=== PATIENT | female | born 1965 | race Caucasian/White ===

== ENCOUNTER 2020-07-18 15:08 | Outpatient (CLI) | payer BC, SELFPAY ==
--- NOTE | ~2020-07-18 | US_ITS ---
EXAMINATION: US pelvic complete w TV DATE: 07/18/2020 15:43 INDICATION: Enlarged uterus Comparison:No prior studies for comparison. TECHNIQUE: Multiple transabdominal and endovaginal sonographic images of the pelvis performed. FINDINGS: The uterus measures 8.4 x 2 x 4.6 cm. There is a uterine fibroid at the fundus measuring 1. 6 cm. The endometrial complex measures 3 mm. The right ovary is not visualized. Left ovary is unremarkable measuring 2 x 1.3 x 0.9 cm. There is no free fluid in the pelvis. There are no abnormal masses seen on either side. IMPRESSION: 1. Small uterine fibroid at the fundus measuring 1.6 cm maximum dimension. Reviewed, dictated and finalized at location B.
== END 2020-07-18 15:09 ==
PROVIDERS: PCP Internal Medicine; Visit Provider Obstetrics & Gynecology
DX: N85.2 Hypertrophy of uterus (principal); D25.9 Leiomyoma of uterus, unspecified
CPT/HCPCS: 76830; 76856

== ENCOUNTER → 2020-08-18 10:53 | Outpatient (CLI) | payer BC, SELFPAY ==
--- NOTE | ~2020-08-18 | MM_ITS ---
EXAMINATION: MM screening [facility] BI w jese HISTORY: Screening mammogram TECHNIQUE: Craniocaudal and mediolateral oblique 3-D tomosynthesis images were obtained and synthetic 2-D images were generated. CAD analysis was submitted and interpreted. COMPARISON: 04/14/2018, 05/05/2013 bilateral digital screening mammogram examinations BREAST PARENCHYMAL COMPOSITION: There are scattered areas of fibroglandular density. FINDINGS: There are bilateral mammographic asymmetries including 2 possible mid and upper outer left breast masses. Bilateral diagnostic mammography and bilateral breast ultrasound examination are recom mended. IMPRESSION: 1. Bilateral mammographic asymmetries, possible breast masses 2. Bilateral diagnostic mammography and breast ultrasound examination are recommended BI-RADS Category 0: Incomplete: Needs additional imaging evaluation. Reviewed, dictated and finalized at location A. IMPRESSION: 1. Bilateral mammographic asymmetries, possible breast masses 2. Bilateral diagnostic mammography and breast ultrasound examination are recom mended BI-RADS Category 0: Incomplete: Needs additional imaging evaluation.
== END ==
PROVIDERS: Visit Provider Obstetrics & Gynecology
DX: Z12.31 Encounter for screening mammogram for malignant neoplasm of breast (principal); R92.8 Other abnormal and inconclusive findings on diagnostic imaging of breast
CPT/HCPCS: 77063; 77067

== ENCOUNTER → 2020-10-19 09:24 | Outpatient (CLI) | payer BC, SELFPAY ==
--- NOTE | ~2020-10-19 | MMUS_ITS ---
EXAMINATION: MM diagnostic [facility] BI w jese, US breast LT limited HISTORY: Bilateral mammographic asymmetries reported on 08/18/2020 screening mammogram TECHNIQUE: Additional 3-D tomosynthesis images of both breasts were performed and synthetic 2-D image s were generated. CAD analysis was submitted and interpreted. High resolution upper outer and lower-o uter left breast ultrasound was performed. COMPARISON: 08/10/2020, 04/12/2018, bilateral digital screening mammogram examinations FINDINGS: MAMMOGRAPHIC FINDINGS: Approximately 7 x 10 mm circumscribed mildly lobular mass is noted in the outer mid left breast. Approximately 7 mm irregular asymmetric opacity is noted in the upper outer left breast. Ultrasound of the left upper outer and lower-outer quadrants was performed for further evaluation of these areas. No suspicious mass or architectural distortion, malignant aspiration, skin thickening or retraction o f either breast is noted otherwise. ULTRASOUND: Left breast 2:00 3 cm from nipple: 4.5 x 3.9 x 4.3 mm hypoechoic lesion is noted, without internal va scularity or suspicious shadowing; six-month targeted left breast ultrasound follow-up is recommended .. 3:00 3 cm from nipple: 6 x 7.7 mm sonolucency with through transmission posterior enhancement consist ent with simple cyst. IMPRESSION: Probable benign left breast 2:00 lesion; recommend 6 month targeted left breast ultrasound follow-up BI-RADS category 3, probably benign findings. Reviewed, dictated and finalized at location A. IMPRESSION: Probable benign left breast 2:00 lesion; recommend 6 month targeted left breast ultrasound follow-up BI-RADS category 3, probably benign findings.
== END ==
PROVIDERS: PCP Internal Medicine; Visit Provider Obstetrics & Gynecology
DX: R92.8 Other abnormal and inconclusive findings on diagnostic imaging of breast (principal)
CPT/HCPCS: 76642; 77062; 77066; G0279

== ENCOUNTER → 2020-10-19 09:26 | Outpatient (CLI) | payer BC, SELFPAY ==
--- NOTE | ~2020-10-19 | DEXA_ITS ---
Bone Density Report Name: Estefania Taylor Age: 55 Sex: Female Ethnicity: White Date of : 1965 Indication: postmenopausal; screening for osteoporosis; asthma or emphysema; Referring Provider: MALAIKA, CLAU Cordova Study: Bone densitometry was performed. Exam Date: October 19, 2020 Accession number: [id number] Bone Density: Region BMD T-score Z-score Classification AP Spine (L1-L4) 1.139 0.8 2.0 Normal Femoral Neck (Left) 0.919 0.6 1.7 Normal Total Hip (Left) 1.023 0.7 1.4 Normal Femoral Neck (Right) 0.817 -0.3 0.8 Normal Total Hip (Right) 0.971 0.2 1.0 Normal Total Hip Mean 0.997 0.5 1.2 Normal World Health Organization criteria for BMD impression classify patients as: Normal (T-score at or above -1.0), Osteopenia (T-score between -1.0 and -2.5), or Osteoporosis (T-score at or below -2.5). 10-year Fracture Risk: FRAX not reported because: All T-scores for Spine Total, Hip Total, Femoral Neck at or above -1.0 Clinical Information Provided by Patient: Has used the following medications: Vitamin D Has the following medical conditions: Asthma or Emphysema Patient maximum height was 62 Menopause Age: 36 No regular weight bearing exercise Does not regularly consume dairy products Drinks caffeinated beverages Onset of menses at age 9 Number of children 2 Impression: The patient has normal bone mass. Discussion: BONE DENSITY IS ABOVE THE MINIMUM DESIRABLE LEVEL AT ALL SKELETAL SITES TESTED. This patient?s bone mineral density is above the minimum desirable level (T-score -1.0 or better) at all sites measured. The patient should follow a healthful lifestyle (good nutrition with adequate calcium and vitamin D, and appropriate weight-bearing exercise). Follow-Up: Consider repeating this study in 5 years or sooner if there is some new clinical indication. Reported by: TERE on 10/19/2020 11:03:00 AM. Reviewed, dictated and finalized at location ABrett CORONADO
== END ==
PROVIDERS: PCP Internal Medicine; Visit Provider Internal Medicine
DX: Z78.0 Asymptomatic menopausal state (principal)
CPT/HCPCS: 77080

== ENCOUNTER 2021-04-24 21:03 | Emergency (ER) | payer BC, SELFPAY ==
[2021-04-24 21:13] VITALS: BP 95/54; PULSE 85; RESP 20; TEMP 36.9; O2SAT 95
--- NOTE | 2021-04-24 22:33 | PC.NURSE ---
Pt to desk for the second time reporting that she is going to leave. Pt encouraged to stay but to return if her symptoms do not improve. Pt A&Ox4 and ambulatory.
== END 2021-04-24 23:11 | disposition left against medical advice (07) ==
LOC: ANHED 22:43
PROVIDERS: PCP Internal Medicine
DX: R10.9 Unspecified abdominal pain (principal)
CPT/HCPCS: 99199

== ENCOUNTER 2023-01-08 13:28 | Outpatient (CLI) | payer BC, SELFPAY ==
--- NOTE | 2023-01-08 | ECHO_ITS ---
Patient Info Name: Estefania Taylor Age: 57 years : 1965 Gender: Female Ht: 61 in Wt: 195 lbs BSA: 2.00 m2 HR: 75 bpm BP: 120 / 79 mmHg Technical Quality: Fair Exam Date: 01/08/2023 2:07 PM Exam Location: [facility] Patient Status: Outpatient Admit Date: 01/08/2023 Staff Ordering Physician: Joycelyn, Trenton Cordova MD Business Broker: Natasha Marie RDCS Attending Provider: Jean, Trenton Cordova MD Referring Physician: Joycelyn GRIFFITHS; Exam Type: CA echo doppler color flow Study Info Indications - artificial heart valve Complete two-dimensional, color flow and Doppler transthoracic echocardiogram is performed. Summary 1. Complete two-dimensional, color flow and Doppler transthoracic echocardiogram is performed. 2. Left ventricular chamber dimension is normal. 3. Left ventricular systolic function is normal, estimated at 60-65%. 4. The left ventricular diastolic function is grade I diastolic dysfunction. 5. E/e' 6 is not elevated. 6. Left atrial chamber dimension is mildly enlarged. 7. There is trace mitral valve regurgitation. 8. There is trace tricuspid valve regurgitation. 9. No pulmonary hypertension, estimated pulmonary arterial systolic pressure is 32 mmHg. 10. There is trace pulmonic regurgitation. Left Ventricle E/e' 6 is not elevated. Left ventricular chamber dimension is normal. Left ventricular systolic function is normal, estimated at 60-65%. The left ventricular diastolic function is grade I diastolic dysfunction. Right Ventricle Right ventricular chamber dimension is normal. Right ventricular systolic function is normal. Left Atria Left atrial chamber dimension is mildly enlarged. Right Atria Right atrial chamber dimension is normal. Aortic Valve The aortic valve is trileaflet. There is no aortic valve stenosis. There is no aortic valve regurgitation. Pulmonic Valve There is trace pulmonic regurgitation. Mitral Valve There is no mitral valve stenosis. There is trace mitral valve regurgitation. Tricuspid Valve There is trace tricuspid valve regurgitation. No pulmonary hypertension, estimated pulmonary arterial systolic pressure is 32 mmHg. Pericardium/Pleural There is no pericardial effusion. Inferior Vena Cava Normal inferior vena cava with >50% collapse upon inspiration consistent with normal right atrial pressure, 5 mmHg. Aorta The aortic root size at the sinus of Valsalva is normal. Left Ventricular Outflow Tract Name Value Normal LVOT 2D LVOT Diameter 2.0 cm LVOT Doppler LVOT Peak Gradient 4 mmHg LVOT Mean Gradient 3 mmHg LVOT VTI 21 cm LVOT VTI/AV VTI Ratio 0.9 LVOT Stroke Volume 63 ml LVOT CO 14.4 l/min LVOT CI 7.2 l/min/m2 Pulmonic Valve Name Value Normal PV Doppler PV Peak
== END 2023-01-08 13:29 | disposition home or self-care (01) ==
PROVIDERS: PCP Internal Medicine; Visit Provider Internal Medicine
DX: Z95.2 Presence of prosthetic heart valve (principal); I51.7 Cardiomegaly
CPT/HCPCS: 77063; 77067; 77080; 93306

== ENCOUNTER 2023-01-08 14:51 | Outpatient (CLI) | payer BC, SELFPAY ==
--- NOTE | ~2023-01-08 | MM_ITS ---
EXAMINATION: MM screening [facility] BI w jese HISTORY: Screening mammogram TECHNIQUE: Craniocaudal and mediolateral oblique 3-D tomosynthesis images were obtained and synthetic 2-D images were generated. CAD analysis was submitted and interpreted. COMPARISON: 10/19/2020, 08/18/2020, 04/15/2018 BREAST PARENCHYMAL COMPOSITION:There are scattered areas of fibroglandular density. FINDINGS: No suspicious mass, calcification, or architectural distortion are identified in either heidi ast to suggest malignancy. There has been no suspicious interval change. IMPRESSION: No mammographic evidence of malignancy. Recommend routine screening mammography in one year. BI-RADS Category 1: Negative Reviewed, dictated and finalized at location .
--- NOTE | ~2023-01-08 | DEXA_ITS ---
Bone Density Report Name: EDWIN CRUZ Age: 57 Sex: Female Ethnicity: White Date of : 1965 Indication: postmenopausal; screening for osteoporosis; height loss; asthma or emphysema; Referring Provider: MALAIKA, CLAU Cordova Study: Bone densitometry was performed. Exam Date: January 08, 2023 Accession number: [id number] Bone Density: Region BMD T-score Z-score Classification AP Spine(L1-L4) 1.079 0.3 1.6 Normal Femoral Neck (Left) 0.888 0.3 1.6 Normal Total Hip (Left) 0.966 0.2 1.1 Normal Femoral Neck (Right) 0.827 -0.2 1.0 Normal Total Hip (Right) 0.921 -0.2 0.7 Normal Total Hip Mean 0.944 0.0 0.9 Normal World Health Organization criteria for BMD impression classify patients as: Normal (T-score at or above -1.0), Osteopenia (T-score between -1.0 and -2.5), or Osteoporosis (T-score at or below -2.5). 10-year Fracture Risk: FRAX not reported because: All T-scores for Spine Total, Hip Total, Femoral Neck at or above -1.0 Clinical Information Provided by Patient: Has used the following medications: Vitamin D Has the following medical conditions: Asthma or Emphysema Patient maximum height was 62 Menopause Age: 39 No regular weight bearing exercise Does not regularly consume dairy products Drinks caffeinated beverages Onset of menses at age 9 Number of children 2 Impression: The patient has normal bone mass. Discussion: BONE DENSITY IS ABOVE THE MINIMUM DESIRABLE LEVEL AT ALL SKELETAL SITES TESTED. This patient?s bone mineral density is above the minimum desirable level (T-score -1.0 or better) at all sites measured. The patient should follow a healthful lifestyle (good nutrition with adequate calcium and vitamin D, and appropriate weight-bearing exercise). Follow-Up: Consider repeating this study in 5 years or sooner if there is some new clinical indication. Reported by: MUKUND on 01/08/2023 3:33:00 PM. Reviewed, dictated and finalized at location Amparo CORONADO
== END 2023-01-08 14:52 | disposition home or self-care (01) ==
LOC: ANHIMG 14:55
PROVIDERS: PCP Internal Medicine; Visit Provider Internal Medicine
DX: Z12.31 Encounter for screening mammogram for malignant neoplasm of breast (principal); Z78.0 Asymptomatic menopausal state
CPT/HCPCS: 77063; 77067; 77080

== ENCOUNTER 2024-05-25 15:11 | Outpatient (CLI) | payer OTHER, SELFPAY | END 2024-05-25 15:12 | disposition home or self-care (01) | LOC: MICIMG 15:13 | PROVIDERS: PCP Internal Medicine; Visit Provider Internal Medicine | DX: Z12.2 Encounter for screening for malignant neoplasm of respiratory organs (principal); Z87.891 Personal history of nicotine dependence | CPT/HCPCS: 71271 ==

== ENCOUNTER 2024-06-11 13:18 | Outpatient (CLI) | payer OTHER, SELFPAY ==
--- OUTSIDE RECORDS SUMMARY | 2024-06-11 13:42 | XMS_ITS | Continuity of Care Document ---
Author Organization [facility] Address [address] [place] [address] [place] [address] Phone Care Team Providers Care De Alcholizer Name Role Phone Red Francis MD Unavailable Unavailable Allergies, Adverse Reactions, Alerts Substance Reaction Status Criticality No Known Allergies Active No Inform ation Medications Medication Instructions Dosage Effective Dates (start - stop) Status Comments Augmentin 875 mg-125 mg tablet take 1 tablet by oral route every 12 hours - Active Flagyl 500 mg tablet take 1 Tablet (0.5G) by oral route 3 times every day 0.5 G - Active [place] 5 mg-325 mg tablet take 1 tablet by oral route every 6 hours as needed for pain - Active PRN for pain, avoid driving or operate machines Procedures Procedure Date PREV VISIT, EST, AGE 40-64 OFFICE/OUTPATIENT VISIT, EST Advance Directives Directive Yes / No Effective Date File Name No Information Encounters Encounter Description Practice Location Reason(s) For Visit Diagnoses Date Provider Providers Copied on Encounter [facility] [place], [address] [place], [id number], tel:[phone] [facility] [place] No Information 4 Tito Moon. [address] [facility] [place], [id number] , [place]. [phone] [facility] [place], [address] [place], [id number], tel:[phone] [facility] [place] No Information 4 Tito Moon. [address] [facility] [place], [id number] , [place]. tel:[phone] PREV VISIT, EST, AGE 40-64 [facility], [address], [place], [place], [id number], tel:[phone] [facility] Physical (chief complaint) Dietary surveillance and counselingRoutine Medical ExamAbdominal PainRoutine Medical Exam 201 [address] Tito Moon. [address], [place], [place], [id number] , [place]. tel:[phone] Family History Family Member Type Diagnosis Age At Onset Father Problem (finding) Cancer - leukoemia Mother Problem (finding) Diabetes mellitus Mother Problem (finding) Hypertension Brother Problem (finding) Alive and well Father Problem (finding) Coronary artery disease Payers Payer name Insurance type Covered republican ID Authoriza tion(s) No Information Social History Type Description Quantity Date Captured Comments Sex Female Smoking Status No Information Chief Complaint And Reason For Visit No Information Plan Of Treatment Date Type Action Status Goal Tobacco cessation counseling completed History Of Present Illness Encounter Date Complaint History Of Prese nt Illness No Information Instructions Date Instruction Additional Infor bethanie Dietary counseling Related to Di etary surveillance counseling Decrease caloric intake Related to Dietary surveillance counseling Assessments Type Assessment Date No Information
--- OUTSIDE RECORDS SUMMARY | 2024-06-11 13:42 | XMS_ITS | Continuity of Care Document ---
Author Organization [facility] [place] Address [address] [address] Insurance Providers Payer Plan Claims Address Claims Phone Policy Number Group Number Relation Employer Guarantor Name Guarantor Guarantor Address Guarantor Phone No [place] [id number] Self Estefania Taylor [address] [place] [id number] Problems Unknown Problems Results Test Value / Unit Interpretation Reference Ran Comp. Metabolic Panel ([id number]] Collected: 09/20/2022 02:37 PM Specimen Received: 09/20/2022 05:00 AM Source: [facility] courtesy copy of this report has been sent to [phone] Glucose [441082] 101 mg/dL H 70-99 mg/dL BUN [652069] 20 mg/dL 6-24 mg/dL Creatinine [898031] 0.82 mg/dL 0.57-1.0 0 mg/dL eGFR [682280] 83 mL/min/1.73 >59 mL/min/1 .73 BUN/Creatinine Ratio [901526] 24 H 9-23 Sodium [210094] 144 mmol/L 134-144 mmol /L Potassium [883448] 4.9 mmol/L 3.5-5.2 m mol/L Chloride [356209] 106 mmol/L 96-106 mmo l/L Carbon Dioxide, Total [323857] 24 mmol/L 20-29 mmol/L Calcium [813968] 9.8 mg/dL 8.7-10.2 mg /dL Protein, Total [885836] 6.7 g/dL 6.0- 8.5 g/dL Albumin [414600] 4.5 g/dL 3.8-4.9 g/d L Effective September 30, 2022 Al lynnette reference interval will be changing to: Age Male Female 0 - 7 days 3.6 - 4.9 3.6 - 4.9 8 - 30 days 3.5 - 4.6 3.5 - 4.6 1 - 6 months 3.7 - 4.8 3.7 - 4.8 7 months - 2 years 4.0 - 5.0 4.0 - 5.0 3 - 5 years 4.1 - 5.0 4.1 - 5.0 6 - 12 years 4.2 - 5.0 4.2 - 5.0 13 - 30 years 4.3 - 5.2 4.0 - 5.0 31 - 50 years 4.1 - 5.1 3.9 - 4.9 51 - 60 years 3.8 - 4.9 3.8 - 4.9 61 - 70 years 3.9 - 4.9 3.9 - 4.9 71 - 80 years 3.8 - 4.8 3.8 - 4.8 81 - 89 years 3.7 - 4.7 3.7 - 4.7 90 - 199 years 3.6 - 4.6 3.6 - 4.6 Globulin, Total [855194] 2.2 g/dL 1.5 -4.5 g/dL A/G Ratio [854360] 2.0 1.2-2.2 Bilirubin, Total [743587] 0.5 mg/dL 0. 0-1.2 mg/dL Alkaline Phosphatase [787905] 81 IU/L 44-121 IU/L AST (SGOT) [347795] 18 IU/L 0-40 IU/ L ALT (SGPT) [988451] 20 IU/L 0-32 IU/ L Lipid Panel[409617] Collected: 09/20/2022 02:37 PM Specimen Received: 09/20/2022 05:00 AM Source: [facility]corpA courtesy copy of this report has been sent to [phone] Cholesterol, Total [960181] 190 mg/dL 100-199 mg/dL Triglycerides [023738] 54 mg/dL 0-149 mg/dL HDL Cholesterol [298193] 52 mg/dL >39 mg/dL VLDL Cholesterol Adan [166717] 10 mg/dL 5-40 mg/dL LDL Chol Calc ([facility]) [014199] 128 mg/dL H 0-99 mg/dL Albumin/Creatinine Ratio,Uri ne[[id number]] Collected: 09/20/2022 02:37 PM Specimen Received: 09/20/2022 05:00 AM Source: [facility]corpA courtesy copy of this report has been sent to [phone] Creatinine, Urine [952270] 83.7 mg/dL N ot Estab. mg/dL Albumin, Urine [947203] 15.0 ug/mL Not Estab. ug/mL Alb/Creat Ratio [223595] 18 mg/g creat 0- 29 mg/g creat Normal: 0 - 29 Moderately in creased: 30 - 300 Severely increased: >300 Hemoglobin A1c[377768] Collected: 09/20/2022 02:37 PM Specimen Received: 09/20/2022 05:00 AM Source: [facility] courtesy copy of this report has been sent to [phone] Hemoglobin A1c [880177] 6.3 % H 4.8- 5.6 % . Prediabetes: 5.7 - 6.4 Leigh betes: >6.4 Glycemic control for adults with diabetes: 7.0 Allergies, adverse reactions, alerts No known allergies and adverse reactions Medications No administered medications reported Vital Signs No vital signs reported Social History No smoking Hx information available
--- NOTE | 2024-06-14 12:01 | WPDPFTINT ---
PFT Procedure Performed PFT Procedure Performed Plethysmography (Lung Vol) Diffusing Cap (DLCO) Flow Vol Loop Spirometry w/o Bronchodil PFT Interpretation Lung volumes were assessed using body plethysmography. The reduced expiratory reserve volume is associated with obesity, while the decreased vital capacity could suggest a potential restrictive respiratory disease. Spirometry revealed decreased expiratory flow rates and a reduced FEV1/FVC ratio of 66%, indicating obstructive airway disease. A post-bronchodilator study was not performed. Lung diffusion capacity remains within normal limits. The flow volume loop appears unremarkable. The reduction in forced vital capacity is disproportionate to the obstructive component, suggesting the possibility of a mixed disorder involving both obstructive and restrictive respiratory disease. A repeated study including post-bronchodilator measurements may provide further insight. Impression: Moderate obstructive airway disease with potential coexisting restrictive respiratory disease. Lung diffusion capacity is within normal limits.
== END 2024-06-11 13:19 | disposition home or self-care (01) ==
LOC: ANHPFT 13:18
PROVIDERS: PCP Internal Medicine; Visit Provider Internal Medicine
DX: J44.9 Chronic obstructive pulmonary disease, unspecified (principal)
CPT/HCPCS: 94375; 94726; 94729

== ENCOUNTER 2024-10-04 15:39 | Outpatient (CLI) | payer OTHER, SELFPAY ==
--- NOTE | ~2024-10-04 | MM_ITS ---
EXAMINATION: MM screening [facility] BI w jese HISTORY: Screening TECHNIQUE: Craniocaudal and mediolateral oblique 3-D tomosynthesis images were obtained and synthetic 2-D images were generated. CAD analysis was submitted and interpreted. COMPARISON: Comparison to multiple prior studies sequentially, with oldest reviewed study dated 04/15. BREAST PARENCHYMAL COMPOSITION: Not dense: There are scattered areas of fibroglandular density. FINDINGS: There is no evidence of suspicious mass, calcification, or architectural distortion to sugg est malignancy in either breast. There has been no suspicious interval change. IMPRESSION: 1. No mammographic evidence of malignancy. 2. Recommend routine screening mammography in one year. BI-RADS Category 1: Negative Reviewed, dictated and finalized at location []
--- OUTSIDE RECORDS SUMMARY | 2024-10-04 15:48 | XMS_ITS | Continuity of Care Document ---
Author Organization [facility] Address [address] [place] [address] [place] [address] Phone Care Team Providers Care Aws Architect Name Role Phone Red Francis MD Unavailable [...] times every day 0.5 G - Active [place] 5 mg-325 mg tablet take 1 tablet [...] Diagnoses Date Provider Providers Copied on Encounter [facility], [address] [place], [place], [id number], tel:[phone] [facility] No Information 4 Tito Moon. [address] [facility] [place], [id number] , [place]. [phone] [facility], [address] [place] [place], [address], tel:[phone] [facility] No Information 4 Tito Moon. [address] [facility] [place], [place], [id number] , [place]. tel:[phone] PREV VISIT, EST, AGE 40-64 [facility], [address], [place], [place], [id number], tel:[phone] [facility] Medicine Physical (chief complaint) Dietary surveillance and counselingRoutine Medical ExamAbdominal PainRoutine Medical Exam 201 4 T[address], [place], [place], [id number] , [place]. tel:[phone] Family History Family Member Type Diagnosis Age At Onset Father Problem (finding) Cancer - leukoemia Mother Problem (finding) Diabetes mellitus Mother Problem (finding) Hypertension Brother Problem (finding) Alive and well Father Problem (finding) Coronary artery disease Payers Payer name Insurance type Covered green party ID Authoriza tion(s) No Information Social History [...]
== END 2024-10-04 15:40 | disposition home or self-care (01) ==
LOC: ANHIMG 15:45
PROVIDERS: PCP Internal Medicine; Visit Provider Internal Medicine
DX: Z12.31 Encounter for screening mammogram for malignant neoplasm of breast (principal)
CPT/HCPCS: 77063; 77067